=== PATIENT | female | born 1990 | race Caucasian/White ===

== ENCOUNTER 2016-10-03 18:02 | Emergency (ER) | payer MEDICAID ==
[~2016-10-03] VITALS: Ht 152.4 cm; Wt 63.6 kg
[~2016-10-03 18:02] MED LIST: OXYC1SOL5 PO; PREN0.01 PO
[2016-10-03 18:06] VITALS: BP 125/83; PULSE 92; RESP 16; TEMP 98.3; O2SAT 100
--- NOTE | 2016-10-03 18:26 | PD ---
HPI Chief Complaint: GI Complaint Time Seen by Provider: 18:26 Travel History International Travel<30 days: No Contact w/Intl Traveler<30days: No Traveled to known affect area: No History of Present Illness HPI 25-year-old female presents to the ED for evaluation of one episode of dark stools. The patient states that her entire family had a "stomach bug" for the last 5 days. She states that she had multiple episodes of diarrhea and vomiting during the course of the illness. Denies fevers, chills, cold symptoms. She states that she took a few doses of Pepto Bismal two days ago and has not had a bowel movement until today. She states that the stool produced today was black. She also endorse a small amount of mucous in the stool, which she states is her normal. She denies abdominal pain, early satiety, nausea, vomiting, diarrhea, constipation, BRBPR. Denies history of bleeding problems. Denies dizziness, shortness of breath, dyspnea on exertion. She denies chronic health problems, takes no daily medications, NKDA. Last menstrual period 09/07, denies risk of . Patient does not currently have a PCP. PFSH Past Medical History ADHD: No Cancer: No Cardiovascular Problems: No Diabetes: No Diminished Hearing: No Psychiatric: No Migraines: No Seizures: No Thyroid Disease: No Ulcer: No Influenza Vaccination: No ?: Not LMP: 09/08/16 Past Surgical History Appendectomy: No Cholecystectomy: No Other Surgery: No Social History Alcohol Use: Yes (OCCAS) Tobacco Use: No Substance Use: No Allergies-Medications (Allergen,Severity, Reaction): Coded Allergies: No Known Allergies (Verified , 10/03/16) Uncoded Allergies: NICKEL (Allergy, Severe, 11/23/06) Reported Meds & Prescriptions Reported Meds & Active Scripts Active Review of Systems Except as stated in HPI: all other systems reviewed are Neg Physical Exam Narrative GENERAL: Well-nourished, well-developed white female in no acute distress. SKIN: Warm and dry. HEAD: Normocephalic. EYES: No scleral icterus. No injection or drainage. NECK: Supple, trachea midline. No JVD or lymphadenopathy. CARDIOVASCULAR: Regular rate and rhythm without murmurs, gallops, or rubs. RESPIRATORY: Breath sounds equal bilaterally. No accessory muscle use. GASTROINTESTINAL: Abdomen soft, non-tender, nondistended. Active bowel sounds. No palpable masses. Manzano sign negative. MUSCULOSKELETAL: No cyanosis, or edema. BACK: Nontender without obvious deformity. No CVA tenderness. Data Data Last Documented VS Vital Signs Date Time Temp Pulse Resp B/P Pulse Ox O2 Delivery O2 Flow Rate FiO2 10/03/16 18:06 98.3 92 16 125/83 100 MDM Medical Decision Making Medical Screen Exam Complete: Yes Emergency Medical Condition: No Differential Diagnosis Gastritis versus enteritis versus viral syndrome versus Gastroenteritis versus GI bleed versus Narrative Course 25-year-old female presents to the ED for evaluation of one episode of dark stool. The patient states that her entire family had a "stomach bug" for the last 5 days. She endorses episodes of NBNB diarrhea and vomiting. Symptoms resolved on presentation. States a few doses of Pepto-Bismol 2 days ago, first bowel movement today was very black. He endorses a small amount of mucus in the stool as well which she states is her normal. Denies fevers, chills, cold symptoms, abdominal pain, early satiety, nausea, vomiting, diarrhea, constipation, BRBPR, history of bleeding problems, dizziness, shortness of breath, dyspnea on exertion. Last menstrual period 2, denies risk of . Vitals reviewed. Physical exam is reassuring. Patient does not currently have a PCP. She is a [facility] resident and was provided information on the patient assistance program. No medical emergency exists at this time. A medical screening exam was performed: At the time of evaluation the presenting medical condition was determined not to be of an emergent nature. The patient was given the option of receiving additional care, but declined. Patient was given options for additional community resources from which to obtain care. The Patient Has Been advised to seek medical attention for their presenting complaint. The patient has been advised to return to the ER at any time if an emergent condition develops. Diagnosis Primary Impression: Encounter for medical screening examination Condition: Gracie Cabezas Oct 03, 2016 18:26
== END 2016-10-03 18:42 | disposition left against medical advice (07) ==
LOC: PHEFT 18:02
DX: R19.5 Other fecal abnormalities (principal); R19.7 Diarrhea, unspecified; R11.10 Vomiting, unspecified
CPT/HCPCS: 99281

== ENCOUNTER 2017-03-21 12:21 | Emergency (ER) | payer MEDICAID ==
[~2017-03-21] VITALS: Ht 152.4 cm; Wt 69.2 kg
[2017-03-21 12:30] VITALS: BP 124/75; PULSE 112; RESP 16; TEMP 99.1
--- NOTE | 2017-03-21 13:56 | PD ---
HPI Chief Complaint: Complaint Time Seen by Provider: 13:48 Travel History International Travel<30 days: No Contact w/Intl Traveler<30days: No Traveled to known affect area: No History of Present Illness HPI Patient presents with complaints of dysuria and mild left flank pain. Denies nausea vomiting or diarrhea. Subjective fever last night. Gives an extensive history of a left first finger cellulitis 2 weeks ago which was treated with Bactrim. Unable to tolerate full 10 day course which she stopped after 7 days secondary to migraines. Reports daily migraines since which resolved 3 days ago. Since last night she has developed concerns of UTI with the above symptoms. Denies hematuria. Denies frequency. PFSH Past Medical History ADHD: No Cancer: No Cardiovascular Problems: No Diabetes: No Diminished Hearing: No Psychiatric: No Migraines: No Seizures: No Thyroid Disease: No Ulcer: No Tetanus Vaccination: Unknown Influenza Vaccination: No ?: Not LMP: 03/03/17 Past Surgical History Surgical History: No Previous Surgery Appendectomy: No Cholecystectomy: No Other Surgery: No Social History Alcohol Use: Yes (OCCAS) Tobacco Use: No Substance Use: No Allergies-Medications (Allergen,Severity, Reaction): Coded Allergies: No Known Allergies (Verified , 10/03/16) Uncoded Allergies: NICKEL (Allergy, Severe, 11/23/06) Reported Meds & Prescriptions Reported Meds & Active Scripts Active Review of Systems General / Constitutional: No: Fever Eyes: No: Visual changes HENT: No: Headaches Cardiovascular: No: Chest Pain or Discomfort Respiratory: No: Shortness of Breath Gastrointestinal: No: Abdominal Pain Genitourinary: Positive: Dysuria Musculoskeletal: No: Pain Skin: No Rash Neurologic: No: Weakness Psychiatric: No: Depression Endocrine: No: Polydipsia Hematologic/Lymphatic: No: Easy Bruising Physical Exam Narrative GENERAL: Well-nourished, well-developed patient. SKIN: Focused skin assessment warm/dry. HEAD: Normocephalic. EYES: No scleral icterus. No injection or drainage. NECK: Supple, trachea midline. No JVD or lymphadenopathy. CARDIOVASCULAR: Regular rate and rhythm without murmurs, gallops, or rubs. RESPIRATORY: Breath sounds equal bilaterally. No accessory muscle use. GASTROINTESTINAL: Abdomen soft, non-tender, nondistended. MUSCULOSKELETAL: No cyanosis, or edema. BACK: Nontender without obvious deformity. No CVA tenderness. Data Data Last Documented VS Vital Signs Date Time Temp Pulse Resp B/P Pulse Ox O2 Delivery O2 Flow Rate FiO2 03/21/17 12:30 99.1 112 16 124/75 Orders Urinalysis - C+S If Indicated (03/21/17 13:48) Labs Laboratory Tests Test 03/21/17 13:45 Urine Collection Type CLEAN CATCH Urine Color YELLOW Urine Turbidity CLEAR Urine pH 6.0 Urine Specific [place] 1.024 Urine Protein NEG mg/dL Urine Glucose (UA) NEG mg/dL Urine Ketones NEG mg/dL Urine Occult Blood NEG Urine Nitrite NEG Urine Bilirubin NEG Urine Leukocyte Esterase SMALL Urine RBC 0-3 /hpf Urine WBC 3-5 /hpf Urine Squamous Epithelial 6-8 /hpf Cells Microscopic Urinalysis Comment CULT NOT INDICATED Urine Collection Time 13:45 [facility] Medical Decision Making Medical Screen Exam Complete: Yes Emergency Medical Condition: Yes Differential Diagnosis Dysuria, UTI, hematuria, drug reaction, dehydration Narrative Course Assessment and plan discussed with patient at bedside. Urinalysis within normal limits. Diagnosis Primary Impression: Dysuria Patient Instructions: General Instructions Additional Instructions: Rest fluids and cranberry supplement. Motrin for discomfort. Encourage antibacterial soap and water to her finger 2 times per day with anabiotic and sterile dressing. Follow-up with PCP. Return to the emergency room with any onset of new symptoms Med/Other Pt SpecificInfo: No Meds Exist/No RX given Disposition: 01 DISCHARGE HOME Condition: Good Santino Winn MD Mar 21, 2017 13:56
[2017-03-21 14:05] LABS: BLOOD, URINE NEG (NEG); GLUCOSE,URINE NEG (NEG); KETONE, URINE NEG (NEG); NITRITE,URINE NEG (NEG)
[2017-03-21 14:11] LABS: COMMENT (UR) CULT NOT INDICATED; CULTURE IF INDICATED CULT NOT INDICATED; METHOD OF COLLECTION CLEAN CATCH; RBC, URINE 0-3 /hpf (0-3); URINE COLOR YELLOW (YELLW/STRAW)
== END 2017-03-21 15:13 | disposition home or self-care (01) ==
LOC: PHED 12:21
DX: R30.0 Dysuria (principal)
CPT/HCPCS: 81001; 99283

== ENCOUNTER 2017-03-26 21:19 | Emergency (ER) | payer MEDICAID ==
[~2017-03-26] VITALS: Ht 152.4 cm; Wt 70.6 kg
[2017-03-26 21:22] VITALS: BP 124/73; PULSE 120; RESP 16; TEMP 98.8; O2SAT 99
[2017-03-26 21:41] LABS: BLOOD, URINE NEG (NEG); GLUCOSE,URINE NEG (NEG); KETONE, URINE TRACE mg/dL (NEG); NITRITE,URINE NEG (NEG)
[2017-03-26 21:53] LABS: URINE COLOR YELLOW (YELLW/STRAW)
[2017-03-26 21:54] LABS: COMMENT (UR) CULT NOT INDICATED; CULTURE IF INDICATED CULT NOT INDICATED; MUCUS URINE FEW /lpf (OCC); RBC, URINE 0-3 /hpf (0-3); SQUAMOUS EPITHELIAL CELL URINE 0-5 /hpf (0-5); WBC, URINE 0-2 /hpf (0-5)
--- NOTE | 2017-03-26 22:01 | PD ---
HPI Chief Complaint: Complaint Time Seen by Provider: 22:00 Travel History International Travel<30 days: No Contact w/Intl Traveler<30days: No Traveled to known affect area: No History of Present Illness HPI 26-year-old female presents emergency department for evaluation of dysuria 4 days. Patient reports she was recently seen in the emergency department had a normal UA discharged home with diagnoses of dysuria. She reports symptoms have persisted and she now has some left-sided flank pain. Patient denies fever chills. Patient denies abdominal pain. Patient reports similar symptoms with UTIs in the past. Patient denies vaginal discharge, irritation or possibility of STD. PFSH Past Medical History Medical History: Denies Significant Hx ADHD: No Cancer: No Cardiovascular Problems: No Diabetes: No Diminished Hearing: No Psychiatric: No Migraines: No Seizures: No Thyroid Disease: No Ulcer: No Tetanus Vaccination: > 5 Years Influenza Vaccination: No ?: Unknown LMP: 03/03/17 Past Surgical History Surgical History: No Previous Surgery Appendectomy: No Cholecystectomy: No Other Surgery: No Social History Alcohol Use: Yes (ocassionally) Tobacco Use: No Substance Use: No Allergies-Medications (Allergen,Severity, Reaction): Coded Allergies: No Known Allergies (Verified , 03/26/17) Uncoded Allergies: NICKEL (Allergy, Severe, 11/23/06) Reported Meds & Prescriptions Reported Meds & Active Scripts Active Cipro (Ciprofloxacin HCl) 500 Mg Tab 500 Mg PO BID 3 Days Review of Systems Except as stated in HPI: all other systems reviewed are Neg General / Constitutional: No: Fever Genitourinary: Positive: Dysuria Physical Exam Narrative GENERAL: Well-nourished, well-developed patient. SKIN: Focused skin assessment warm/dry. HEAD: Normocephalic. EYES: No scleral icterus. No injection or drainage. NECK: Supple, trachea midline. No JVD or lymphadenopathy. CARDIOVASCULAR: Regular rate and rhythm without murmurs, gallops, or rubs. RESPIRATORY: Breath sounds equal bilaterally. No accessory muscle use. GASTROINTESTINAL: Abdomen soft, non-tender, nondistended. MUSCULOSKELETAL: No cyanosis, or edema. BACK: Nontender without obvious deformity. No CVA tenderness. Data Data Last Documented VS Vital Signs Date Time Temp Pulse Resp B/P (MAP) Pulse Ox O2 Delivery O2 Flow Rate FiO2 03/26/17 22:14 03/26/17 21:22 98.8 120 16 99 Orders Orders Urinalysis - C+S If Indicated (03/26/17 21:32) Ed Urine Pregnancytest Poc (03/26/17 21:32) Labs Laboratory Tests Test 03/26/17 21:30 Urine Color YELLOW Urine Turbidity CLEAR Urine pH 6.0 Urine Specific [place] 1.033 Urine Protein 30 mg/dL Urine Glucose (UA) NEG mg/dL Urine Ketones TRACE mg/dL Urine Occult Blood NEG Urine Nitrite NEG Urine Bilirubin NEG Urine Leukocyte Esterase NEG Urine RBC 0-3 /hpf Urine WBC 0-2 /hpf Urine Squamous Epithelial Cells 0-5 /hpf Urine Mucus FEW /lpf Microscopic Urinalysis Comment CULT NOT INDICATED MDM Medical Decision Making Medical Screen Exam Complete: Yes Emergency Medical Condition: Yes Differential Diagnosis UTI, pyelonephritis, vaginitis Narrative Course 26-year-old female presents emergency department for evaluation of dysuria 4 days. Patient reports she was recently seen in the emergency department had a normal UA discharged home with diagnoses of dysuria. She reports symptoms have persisted and she now has some left-sided flank pain. Patient denies fever chills. Patient denies abdominal pain. Patient reports similar symptoms with UTIs in the past. Patient denies vaginal discharge, irritation or possibility of STD. Patient declined pelvic exam stating she noted she doesn't have an STD or vaginal infection. UA ordered and pending UA negative for leukocytes, RBCs, nitrates. Urine negative. This was discussed with patient. Patient is adamant that she has had similar symptoms of UTI in the past and had normal UAs. Patient will be treated with three-day worth of Cipro. She was instructed to follow up with primary doctor. She verbalized understanding and agrees to plan Diagnosis Primary Impression: Dysuria Referrals: Primary Care Physician Scripts Ciprofloxacin (Cipro) 500 Mg Tab 500 MG PO BID for Infection for 3 Days, TAB 0 Refills Prov: Verito Mckeon 03/26/17 Disposition: 01 DISCHARGE HOME Condition: Stable Verito Mckeon Mar 26, 2017 22:01
[2017-03-26] MEDS ORDERED: CIPR-9 PO (22:07)
== END 2017-03-26 22:15 | disposition home or self-care (01) ==
LOC: PHEFT 21:19
DX: R30.0 Dysuria (principal); Z87.440 Personal history of urinary (tract) infections
CPT/HCPCS: 81001; 84703; 99283